=== PATIENT | male | born 2000 | race Caucasian/White ===

== ENCOUNTER → 2020-12-07 | Day surgery (SDC) | payer OTHER ==
[~2020-12-07] MED LIST: ASPIRIN EC81 MG PO; CELEBREX200 MG PO; NEURONTIN300 MG PO; OXYCODONE HCL5 MG PO; PERCOCET 5/325 T1 EA PO; ZOFRAN4 MG PO
== END | disposition home or self-care (01) ==
LOC: OR 07:11
DX: T84.84XA Pain due to internal orthopedic prosthetic devices, implants and grafts, initial encounter (principal); G89.18 Other acute postprocedural pain; Z20.822 Contact with and (suspected) exposure to COVID-19; F17.220 Nicotine dependence, chewing tobacco, uncomplicated
CPT/HCPCS: 73000; 76000; J0690; J1100; J2001; J2250; J2405; J2704; J3010; J7120

== ENCOUNTER → 2021-09-09 | Outpatient (CLI) | payer OTHER | LOC: KOH-I 09-04 16:00 | DX: M25.311 Other instability, right shoulder (principal); Z98.890 Other specified postprocedural states; M84.9 Disorder of continuity of bone, unspecified | CPT/HCPCS: 73200 ==